=== PATIENT | female | born 1945 | race Caucasian/White ===

== ENCOUNTER → 2016-05-21 | Outpatient (CLI) | payer OTHER ==
--- NOTE | 2016-05-21 10:47 | DIAGNOSTIC IMAGING REPORT ---
PROCEDURE: US KIDNEY/RENAL COMPLETE INDICATION: HEMATURIA TECHNIQUE: Tobin scale and color Doppler sonographic imaging of the kidneys and urinary bladder was obtained. Intrarenal resistive indices were calculated when appropriate. COMPARISON: None. FINDINGS: The right kidney measures 9.8 x 5.7 x 4.9 cm Normal cortical thickness and echogenicity. No hydronephrosis, cyst, solid mass, or shadowing calculus. Normal color Doppler blood flow throughout the kidney. Resistive indices in the intrarenal parenchymal arteries range from 0.67-0.75 The left kidney measures 10.8 x 4.1 x 4.7 cm Normal cortical thickness and echogenicity. No hydronephrosis, cyst, solid mass, or shadowing calculus. Normal color Doppler blood flow throughout the kidney. Resistive indices in the intrarenal parenchymal arteries range from 0.66-0.78 The filled urinary bladder has a volume of 68 ml and a post void residual of empty. The urinary bladder wall is uniform in thickness without suspicious thickening or irregularity. No bladder debris, calcification or mass. Bilateral ureteral jets were visible indicating ureteral patency. IMPRESSION: 1. Normal renal morphology. 2. Normal urinary bladder morphology.
== END ==
LOC: US SRH 08:55
DX: R31.9 Hematuria, unspecified (principal)

== ENCOUNTER 2016-08-29 12:53 | Outpatient (CLI) | payer OTHER ==
--- NOTE | 2016-08-29 13:57 | DIAGNOSTIC IMAGING REPORT ---
PROCEDURE: DEXA BONE DENSITY STUDY CLINICAL INDICATION: OSTEOPENIA COMPARISON: DEXA 07/01/2013 FINDINGS: LUMBAR SPINE: Bone mineral density 0.995 g/cm2, T score -0.5 normal which represents a 3% improvement since the previous study LEFT HIP: Bone mineral density 0.878 g/cm2, T score -0.5 normal which represents a 3.1% decrease since the previous study LEFT FEMORAL NECK: Bone mineral density 0.666 g/cm2, T score -1.6 osteopenia which represents a 4.4% decrease from the previous study FRACTURE RISK CALCULATION ( when applicable): 10-year fracture risk of a major osteoporotic fracture 11% and of a hip fracture 1.9% (T score greater or equal to -1.0 to: NORMAL) (T score from -1.1 to -2.4: OSTEOPENIA) (T score ess than or equal to -2.5: OSTEOPOROSIS) IMPRESSION: 1. Osteopenia femoral neck with a a 4.4% decrease in bone mineral density from the previous study. 2. Normal spine hip.
== END 2016-08-29 23:00 ==
LOC: XR SRH 12:53
DX: M85.88 Other specified disorders of bone density and structure, other site (principal)